=== PATIENT | female | born 1955 | race Caucasian/White ===

== ENCOUNTER 2018-02-15 20:44 | Emergency (ER) | payer BC ==
[~2018-02-15] VITALS: Ht 149.9 cm; Wt 78.9 kg
[~2018-02-15 20:44] MED LIST: DIOVAN HCT 1601 EACH; DULERA 100 MCG/13 GM; FLEXERIL PO; OLUX50 GM; PERCOCET 5-3251 EACH PO; VENTOLIN HFA INH8 GM
[2018-02-15] MEDS ORDERED: CALCIUM CHANNEL BLOC (20:56)
[2018-02-15] MEDS ORDERED: IBUPROFEN 800800 M1 PO (22:39)
[2018-02-15 22:50] VITALS: BP 179/108
== END 2018-02-15 22:51 | disposition home or self-care (01) ==
LOC: M.ERS 20:44
DX: S00.83XA Contusion of other part of head, initial encounter (principal); Z88.0 Allergy status to penicillin; Z88.8 Allergy status to other drugs, medicaments and biological substances; Z98.890 Other specified postprocedural states; W01.0XXA Fall on same level from slipping, tripping and stumbling without subsequent striking against object, initial encounter; Y93.89 Activity, other specified; Y92.89 Other specified places as the place of occurrence of the external cause; Y99.8 Other external cause status